=== PATIENT | male | born 1995 ===

== ENCOUNTER 2016-09-02 18:07 | Emergency (ER) | payer OTHER ==
[2016-09-02] MEDS ORDERED: Albuterol HFA INHALER* 8 gm MDI INH ONE (19:04)
--- NOTE | 2016-09-02 19:08 | UC ---
Asthma HPI - HPI Summary HPI Summary: hx of asthma ran out of albuterol, denies any exacerbation at this time. states he gets SOB at night - History of Current Complaint Stated Complaint: ASTHMA Time Seen by Provider: 09/02/16 18:23 Hx Obtained From: Patient Onset/Duration: Still Present Timing: Intermittent Episode Lasting Initial Severity: Mild Current Severity: None PMH/Surg Hx/FS Hx/Imm Hx Previously Healthy: Yes - Family History Known Family History: Positive: Hypertension, Respiratory Disease Review of Systems Constitutional: Negative Skin: Negative Eyes: Negative ENT: Negative Respiratory: Other - SOB at night Cardiovascular: Negative Gastrointestinal: Negative Genitourinary: Negative Motor: Negative Neurovascular: Negative Musculoskeletal: Negative Neurological: Negative Psychological: Negative All Other Systems Reviewed And Are Negative: Yes Physical Exam Triage Information Reviewed: Yes Appearance: Well-Appearing, No Pain Distress, Well-Nourished Vital Signs Reviewed: Yes Eye Exam: Normal ENT Exam: Normal ENT: Positive: Hearing grossly normal, Pharynx normal, TMs normal Dental Exam: Normal Neck exam: Normal Neck: Positive: Supple, Nontender, No Lymphadenopathy Respiratory Exam: Normal Respiratory: Positive: Chest non-tender, Lungs clear, Normal breath sounds, No respiratory distress, No accessory muscle use Cardiovascular Exam: Normal Cardiovascular: Positive: RRR, No Murmur, Pulses Normal Abdominal Exam: Normal Abdomen Description: Positive: Nontender, No Organomegaly, Soft Bowel Sounds: Positive: Present Musculoskeletal Exam: Normal Musculoskeletal: Positive: Strength Intact, ROM Intact, No Edema Neurological Exam: Normal Neurological: Positive: Alert, Muscle Tone Normal Psychological Exam: Normal Skin Exam: Normal Asthma Course/Dx - Course Course Of Treatment: hx obtained, exam performed, meds reviewed, albuterol dispensed. - Differential Dx/Diagnosis Provider Diagnoses: asthma Discharge - Discharge Plan Condition: Stable Disposition: HOME Patient Education Materials: Asthma (ED) Additional Instructions: make sure that you keep up to date on your medications so that you have it in case of emergency. Follow up with any increase in Shortness of breath
[2016-09-02 19:20] VITALS: BP 126/93
== END 2016-09-02 19:36 | disposition home or self-care (01) ==
LOC: UCCORT 18:07
DX: J45.909 Unspecified asthma, uncomplicated (principal)
CPT/HCPCS: 99201; A9270-GY; G0463